=== PATIENT | female | born 1985 | race Caucasian/White ===

== ENCOUNTER 2020-08-30 11:04 | Day surgery (SDC) | payer OTHER, SELFPAY ==
--- NOTE | 2020-08-30 09:07 | PM.IMHP ---
H&P: HPI History of Present Illness Date/Time: 08/30/20 09:07 Chief Complaint: incomplete ab Narrative: Catie Bennett is a 34 year old female admitted with a 1st trimester AB. she had bleeding and indeed he has an open cervix consistent with an incomplete AB this a.m.. She was offered suction dilatation curettage. Risks and benefits were reviewed in full Review of Systems Review of Systems: All systems reviewed & are unremarkable except as noted in HPI and below PMFSH Past Medical History Medical History Anxiety Depression Right arm fracture Surgical History Surgical History H/O LEEP Family History Family History Father Family history of malignant neoplasm Social History Social History Smoking status: Never smoker Meds Home Medications and Allergies Home Medications Medication Instructions Recorded Confirmed Type alprazolam 0.25 mg PO BID PRN 07/29/19 07/29/19 History phenazopyridine [Pyridium] 100 mg PO TID PRN #7 tablet 07/29/19 Rx sertraline 100 mg PO DAILY 07/29/19 07/29/19 History sulfamethoxazole-trimethoprim 1 tablet PO Q12H #14 tablet 07/29/19 Rx [Bactrim DS] Allergies Allergy/AdvReac Type Severity Reaction Status Date / Time No Known Allergies Allergy Verified 07/29/19 14:51 Exam Const: General: no acute distress Eyes: General: appearance normal, both eyes and all related structures Neck: Neck: supple and no JVD Thyroid: thyroid normal Resp: Effort & Inspection: normal respiratory effort Auscultation: clear to auscultation bilaterally Cardio: Rate: regular rate Rhythm: regular rhythm GI: Inspection: non-distended GI Palp: Yes Soft to palpation, No Tenderness to palpation present (GI) and No Guarding due to palpation present (GI) Auscultation: normal bowel sounds : External Female Exam: normal external appearance Speculum Exam - Vagina: normal appearance of the vagina Speculum Exam - Cervix: Cervical os open Bimanual exam- vagina & uterus: enlarged Skin: General skin exam: no rashes or lesions noted Extrem: General: normal to inspection and no edema Psych: Mental Status: mental status grossly normal Affect: normal affect Assessment and Plan Additional Plan impression: 1St trimester incomplete AB Plan: Suction dilatation and curettage
[2020-08-30 09:53] VITALS: BMI 22.0
[2020-08-30 11:43] VITALS: BP 120/78; PULSE 80; RESP 14; TEMP 36.9; O2SAT 100
[2020-08-30] MEDS: ACETAMINOPHEN 500 MG TABLET 1000 MG PO (11:59)
[2020-08-30 12:20] LABS: Hematocrit 29.4 % (37.0-47.0); Hemoglobin 9.9 g/dL (12.0-15.0)
--- NOTE | 2020-08-30 12:21 | WPDHPUPDATE1 ---
History and Physical Update Update Date/Time: 08/30/20 12:21 History and Physical has been reviewed, including an updated exam of the patient. There are NO changes in the patient's condition. Risks, benefits, and alternatives have been discussed and questions answered. Patient agrees to proceed with procedure.
[2020-08-30] MEDS: LACTATED RINGERS 1,000 ML 30 ML IV CONT (12:25)
--- NOTE | 2020-08-30 12:35 | SUR.PREOP ---
pt informed delay in procedure.
--- NOTE | 2020-08-30 12:59 | WPDANESEPPF ---
Anes - Initial Pre Proc Eval Procedure: Operation Date: 08/30/20 14:00 Proposed Procedures p Suction Dilation And Curettage - Altaf Palomares MD Date/Time: 08/30/20 12:59 Surgeon: Altaf Palomares MD Pre Op Diagnosis: Missed AB Patient Data Age: 34 Gender: F Height: 1.73 m Weight: 62.7 kg Last Vital Signs Temp 36.9 C 08/30/20 11:43 Pulse 80 08/30/20 11:43 Resp 14 08/30/20 11:43 BP 120/78 08/30/20 11:43 Pulse Ox 100 08/30/20 11:43 Allergies Allergy/AdvReac Type Severity Reaction Status Date / Time No Known Allergies Allergy Verified 08/30/20 11:52 Home Medications Medication Instructions Recorded Confirmed Type alprazolam 0.25 mg PO BID PRN 07/29/19 08/30/20 History Laboratory Tests 08/30/20 11:41 Hgb 9.9 g/dL L g/dL (12.0-15.0) Hct 29.4 % L % (37.0-47.0) Patient hx anesthesia problems: none Family hx anesthesia problems: none PMFSH Past Medical History Medical History Anxiety Depression Right arm fracture Surgical History Surgical History H/O LEEP Family History Family History Father Family history of malignant neoplasm Social History Social History Smoking status: Never smoker Alcohol intake: former Drinks per week: 3 Living arrangements: with family Spiritual care concerns: No Anes - Eval Final PreProcedure Day of Procedure 08/30/20 12:59 Patient weight: normal Heart: regular rate and rhythm Lungs: clear to auscultation and normal air movement Airway: Mallampati scale class II Neurological: alert and oriented Last oral intake: >/= 8 hours ASA classification: II Emergent: no Anesthetic plan: proceed Anesthesia type and monitoring: general GIVS and standard monitoring Informed Consent: The patient's anesthetic plan and its attendant risks and benefits were discussed with the patient/family/POA. Questions were solicited and answers provided to the satisfaction of the patient/family/POA.
--- NOTE | 2020-08-30 15:01 | PM.PROC ---
Procedure Note - Detailed Date of procedure: 08/30/20 Pre-op diagnosis: Missed AB Surgeon: Altaf Palomares MD Postop diagnosis: 1st trimester incomplete AB Procedure: Suction dilatation curettage Anesthesia: IV sedation and local Findings: Her uterus is sounded to 9cm. Very minimal tissue with some clots. Complications: None Description of procedure: The patient prepped and draped in the normal sterile fashion placed in dorsal lithotomy position. Under excellent IV sedation weighted speculum placed posterior fornix vagina. 2.5cc of 1% xylocaine anesthesia placed at 2, 4, 8, 10:00 a.m. of the cervix. The uterus sounded to 9cm. Serial dilatation with fragmented dilators performed followed by passage of the 9. Suction curette removing very minimal tissue. It should be noted the patient had reported passage of a large clot and tissue just prior to admission. When no further tissue could be removed, the instruments removed. All sponge, needle, instrument counts were correct. There were no immediate complications
[2020-08-30 15:04] VITALS: BP 120/68; PULSE 93; RESP 16; O2SAT 99
[2020-08-30 15:30] VITALS: BP 111/69; PULSE 82; RESP 16
[2020-08-30 16:00] VITALS: BP 115/75; PULSE 80; RESP 16
[2020-08-30 16:08] VITALS: BP 110/78; PULSE 89; RESP 16
== END 2020-08-30 16:15 | disposition home or self-care (01) ==
PROVIDERS: Visit Provider Obstetrics & Gynecology
PROC: (CPT 59820; principal; 2020-08-30 14:00)
DX: O02.1 Missed abortion (principal); F41.8 Other specified anxiety disorders
CPT/HCPCS: 59820; 36415; 85014; 85018; 88305; A9270; J1200; J1940; J2250; J2405; J2704; J3010; J7120

== ENCOUNTER 2021-05-05 11:31 | Emergency (ER) | payer OTHER, SELFPAY ==
[2021-05-05 11:39] VITALS: BP 115/81; PULSE 81; RESP 16; TEMP 36.6; O2SAT 100
--- NOTE | 2021-05-05 12:21 | ED.FEMALEGU ---
HPI - Female Genitourinary General Chief complaint: Urogenital-Female Stated complaint: uti symptoms Time Seen by Provider: 05/05/21 12:02 Source: patient and RN notes reviewed Mode of arrival: ambulatory Limitations: no limitations History of Present Illness HPI Narrative: Patient presents today with a 5-day history of urinary frequency and urgency. States it started after she started progesterone suppositories for infertility. Denies dysuria, hematuria, abdominal pain, back pain, fever. She has tried no [id number] treatment prior to arrival. MD elicited complaint: UTI Related Data Home Medications Medication Instructions Recorded Confirmed alprazolam 0.25 mg PO BID PRN 07/29/19 08/30/20 progesterone micronized mg 05/05/21 Allergies Allergy/AdvReac Type Severity Reaction Status Date / Time No Known Allergies Allergy Verified 08/30/20 11:52 Review of Systems Review of Systems: CONSTITUTIONAL: Denies body aches, fever, chills, or sweats. EYES: Denies visual changes, redness, or discharge. ENT: Denies rhinorrhea, congestion, sore throat, or otalgia. CARDIOVASCULAR: Denies chest pain, palpitations, or edema. RESPIRATORY: Denies cough or dyspnea. GASTROINTESTINAL: Denies abdominal pain, nausea, vomiting, or diarrhea. GENITOURINARY: Denies dysuria or hematuria.+ Urgency, frequency SKIN: Denies rash, itching, or wounds. MUSCULOSKELETAL: Denies back pain, joint pain, or myalgia. NEUROLOGIC: Denies headache, numbness, tingling, or weakness. PSYCH: Denies depression or anxiety. [facility] Past Medical History Medical History Anxiety Depression Right arm fracture Surgical History Surgical History H/O LEEP Family History Family History Father Family history of malignant neoplasm Social History Social History Smoking status: Never smoker Alcohol intake: former Drinks per week: 3 Spiritual care concerns: No Comments At time of signature, I have reviewed and agree with nursing past medical, surgical, social and family history unless otherwise noted. Please see nursing chart for further information. There is no relevant family history pertinent to the presenting complaint Exam Narrative: GENERAL: Well-appearing, well-nourished, and in no acute distress. HEAD: Normocephalic, atraumatic. EYES: EOMI. No redness or drainage. Conjunctivae normal. ENT: Mucous membranes pink and moist. NECK: Normal AROM. CHEST: No respiratory distress. ABDOMEN: nondistended EXTREMITIES: Normal range of motion. No edema. SKIN: Warm, dry, no rash. Capillary refill normal. Normal skin turgor. NEURO: No focal deficits. Alert and oriented x3. Gait steady. PSYCH: Normal affect. No signs of depression or anxiety. Course Vital Signs Vital signs: Vital Signs Temperature 97.9 F 05/05/21 11:39 Pulse Rate 81 05/05/21 11:39 Respiratory Rate 16 05/05/21 11:39 Blood Pressure 115/81 05/05/21 11:39 Pulse Oximetry 100 05/05/21 11:39 Temperature 97.9 F 05/05/21 11:39 Pulse Rate 81 05/05/21 11:39 Respiratory Rate 16 05/05/21 11:39 Blood Pressure 115/81 05/05/21 11:39 Pulse Oximetry 100 05/05/21 11:39 Reviewed. Pt has been instructed to follow up with his PCP regarding his elevated blood pressure today. MDM - Female Genitourinary Differential Diagnosis Differential diagnosis: Likely urinary tract infection, vaginitis and cystitis Lab Data Attestation: I reviewed the patient's lab results. Labs: Urine Glucose Negative Reference Range: Negative Urine Bilirubin Negative Reference Range: Negative Urine Ketone
== END 2021-05-05 12:15 | disposition home or self-care (01) ==
PROVIDERS: Emergency Provider Nurse Practitioner
DX: R35.0 Frequency of micturition (principal); F41.9 Anxiety disorder, unspecified
CPT/HCPCS: 81003; 99213; G0463

== ENCOUNTER 2022-12-21 23:28 | Emergency (ER) | payer SELFPAY ==
[2022-12-22 00:15] VITALS: BP 130/84; PULSE 108; RESP 18; TEMP 36.8; O2SAT 100
--- NOTE | 2022-12-22 02:55 | PC.NURSE ---
patient states wait is too long and left from waiting room
== END 2022-12-22 03:02 | disposition left against medical advice (07) ==
LOC: ANHED 12-22 03:00
DX: O26.893 Other specified pregnancy related conditions, third trimester (principal); R22.42 Localized swelling, mass and lump, left lower limb; Z3A.32 32 weeks gestation of pregnancy
CPT/HCPCS: 99199

== ENCOUNTER 2023-01-06 11:21 | Outpatient (RCR) | payer OTHER, SELFPAY ==
[2023-01-06 12:05] VITALS: BP 116/78; PULSE 120
== END 2023-02-17 12:59 | disposition home or self-care (01) ==
LOC: ANHOBOP 11:21
PROVIDERS: Visit Provider Obstetrics & Gynecology
DX: O36.8130 Decreased fetal movements, third trimester, not applicable or unspecified (principal); Z3A.36 36 weeks gestation of pregnancy
CPT/HCPCS: 59025

== ENCOUNTER 2023-01-19 13:07 | Outpatient (CLI) | payer OTHER, SELFPAY ==
--- NOTE | 2023-01-19 13:40 | PC.NURSE ---
Dr Quiñones notified of patient leaking that was noted after vomiting, ROM plus negative. Patient declining zofran at this time and states that she has some at home. Ok to dc home with labor precautions.
[2023-01-19 13:46] VITALS: BP 98/60; PULSE 95
== END 2023-01-19 13:50 | disposition home or self-care (01) ==
LOC: ANHOBOP 13:57
PROVIDERS: Visit Provider Obstetrics & Gynecology
DX: O42.90 Premature rupture of membranes, unspecified as to length of time between rupture and onset of labor, unspecified weeks of gestation (principal); Z3A.00 Weeks of gestation of pregnancy not specified
CPT/HCPCS: 59025; 84112

== ENCOUNTER 2023-02-04 16:09 | Inpatient (IN) | payer OTHER, SELFPAY ==
[2023-02-04] VITALS (22 sets, daily range): BP systolic 112–145; BP diastolic 65–92; PULSE 87–114; TEMP 36.3–36.8; BMI 28.1
--- NOTE | 2023-02-04 16:37 | PM.IMHP ---
H&P: HPI History of Present Illness Date/Time: 02/04/23 16:37 Chief Complaint: term / mild cholestasis of Narrative: this is a 37-year-old 5 para 1 with an EDC of 02/01/2023 who presents at 40 and 3 7 weeks gestation for induction of labor she had some itching and mild cholestasis of . Her cervix is unfavorable and she has early ultrasound confirming dates. She is negative for group B strep PMFSH Past Medical History Medical History Anxiety Depression Right arm fracture Surgical History Surgical History H/O LEEP Family History Family History Father Family history of malignant neoplasm Social History Social History Smoking status: Never smoker Alcohol intake: former Drinks per week: 3 Substance use: never Living arrangements: with family Spiritual care concerns: No Meds Home Medications and Allergies Home Medications Medication Instructions Recorded Confirmed Type alprazolam 0.25 mg tablet 0.25 mg PO BID PRN Anxiety 07/29/19 08/30/20 History linaclotide 72 mcg capsule 72 mcg PO DAILY PRN Constipation 01/09/23 01/09/23 History (Linzess) prenat.vits,bhaskar,[id number] 1 tablet 01/09/23 History sertraline 50 mg tablet 50 mg PO DAILY 01/09/23 01/09/23 History Allergies Allergy/AdvReac Type Severity Reaction Status Date / Time No Known Allergies Allergy Verified 08/30/20 11:52 Vital Signs Vital Signs - 24 hr 02/04/23 16:29 02/04/23 16:30 Pulse Rate 114 H 107 H Blood Pressure 127/79 131/87 Exam Const: General: cooperative, healthy appearing and comfortable Nutritional Appearance: average body habitus Orientation/consciousness: oriented to person, oriented to place and oriented to time HENMT: Head: normal to inspection Resp: Effort & Inspection: normal respiratory effort Cardio: Rate: regular rate Rhythm: regular rhythm Heart sounds: S1 normal heart sound present and S2 normal heart sound present GI: Inspection: normal to inspection ( gravid soft uterus) : Speculum Exam - Cervix: normal appearance of the cervix ( FHTs reassuring) Assessment and Plan Assessment and plan (1) Term : Code(s): Z34.90 - Encounter for supervision of normal , unspecified, unspecified trimester Status: Acute (2) Cholestasis during : Code(s): O26.619 - Liver and biliary tract disorders in , unspecified trimester; K83.1 - Obstruction of bile duct Status: Acute Plan medical induction of labor. Spontaneous vaginal delivery is expected. She has an epidural candidate
--- NOTE | 2023-02-04 16:42 | P.PNAN_ITS ---
Anes - Eval Pre Procedure Procedure: labor epidural Date/Time: 02/04/23 16:42 Pre Op Diagnosis: Induction of Labor Patient Data Age: 37 Gender: F Height: Weight: Last Vital Signs Pulse 107 H 02/04/23 16:30 BP 131/87 02/04/23 16:30 Allergies Allergy/AdvReac Type Severity Reaction Status Date / Time No Known Allergies Allergy Verified 08/30/20 11:52 Home Medications Medication Instructions Recorded Confirmed Type alprazolam 0.25 mg tablet 0.25 mg PO BID PRN Anxiety 07/29/19 08/30/20 History linaclotide 72 mcg capsule 72 mcg PO DAILY PRN Constipation 01/09/23 01/09/23 History (Linzess) prenat.vits,bhaskar,[id number] 1 tablet 01/09/23 History sertraline 50 mg tablet 50 mg PO DAILY 01/09/23 01/09/23 History Patient hx anesthesia problems: none Family hx anesthesia problems: none Results Review: All pre-operative results and documents have been reviewed as part of the pre- operative evaluation. PMFSH Past Medical History Medical History Anxiety Depression Right arm fracture Surgical History Surgical History H/O LEEP Family History Family History Father Family history of malignant neoplasm Social History Social History Smoking status: Never smoker Alcohol intake: former Drinks per week: 3 Substance use: never Living arrangements: with family Spiritual care concerns: No Exam Day of Procedure 02/04/23 16:42 Patient weight: overweight Heart: regular rate and rhythm Lungs: normal air movement Airway: Mallampati scale class 1 Neurological: alert and oriented
--- NOTE | 2023-02-04 16:42 | LDADM ---
This patient, Catie Bennett, was admitted to Labor/Delivery/Recovery 105 on 02/04/23 at 16:09. Plans for labor, pain management and were discussed with patient. Patient/family oriented to hospital policies and general routines including ID bracelet, bed and alarms, visiting hours, pain management, procedures, bathroom and other care routines, personal items, smoking policy, room service/diet and guest tray routines, security routines, and visiting hours. Patient/Family are encouraged to report perceived risks to care and to ask questions if they do not understand what they are told or what they should do. See OBIX for further documentation.
[2023-02-04 16:47] LABS: Basophils Percent Auto 0.1 % (0.2-1.2); Eosinophils Percent Auto 0.4 % (0-4.4); Hematocrit 33.4 % (37.0-47.0); Hemoglobin 10.9 g/dL (12.0-15.0); Immature Granulocyte Absolute 0.04 K/mm3 (0.00-0.031); Immature Granulocyte Percent A 0.5 % (0-0.5); Lymphocytes Absolute Auto 1.43 K/mm3 (0.9-3.2); Lymphocytes Percent Auto 18.1 % (18.3-44.2); Mean Corpuscular HGB Conc 32.6 g/dl (32-36); Mean Corpuscular Hemoglobin 28.3 pg (26-34); Mean Corpuscular Volume 86.8 fl (80-100); Mean Platelet Volume 11.8 fl (7.4-10.4); Monocytes Absolute Auto 0.6 K/mm3 (0.1-0.6); Monocytes Percent Auto 7.8 % (2.6-8.5); Neutrophils Absolute Auto 5.8 K/mm3 (1.3-6.7); Neutrophils Percent Auto 73.1 % (45.5-73.1); Platelet Count Result 183 k/mm3 (150-375); Red Blood Count 3.85 M/mm3 (4.2-5.4); Red Cell Distribution Width 14.3 % (11.5-14.5); White Blood Count 7.9 K/mm3 (4.5-10.0)
[2023-02-04] MEDS: OXYTOCIN 30 UNITS/NS 500 ML 30 UNITS/500 ML BAG IV CONT (17:16)
[2023-02-04] MEDS: LACTATED RINGERS 1,000 ML 125 ML IV CONT (17:16)
[2023-02-04 18:51] LABS: HIV 1/2 Ab P24 Ag Result Negative (Negative)
[2023-02-04] MEDS: ZOLPIDEM TARTRATE (*CRX) 5 MG TABLET PO ×2 (20:31→23:31)
[2023-02-05] VITALS (95 sets, daily range): BP systolic 95–146; BP diastolic 58–96; PULSE 75–122; RESP 18; TEMP 36.1–37.2; O2SAT 81–100
[2023-02-05] MEDS: LACTATED RINGERS 1,000 ML 125 ML IV CONT ×2 (01:00→07:03)
[2023-02-05] MEDS: fentaNYL CITRATE INJ (*CRX) 100 MCG/2 ML VIAL 50 MCG IV PUSH (06:00)
--- NOTE | 2023-02-05 06:54 | PM.OBPNLAB ---
Pain Control Date/time seen: 02/05/23 06:54 Pain control: tolerating well Pelvic Exam Dilation (cm): 2 Effacement (%): 50 station: -1 Amniotic membrane status: Ruptured
[2023-02-05] MEDS: fentaNYL CITRATE INJ (*CRX) 100 MCG/2 ML VIAL IV PUSH (07:24)
[2023-02-05] MEDS: ONDANSETRON INJ 4 MG/2 ML VIAL IV PUSH (07:25)
[2023-02-05 09:21] LABS: Rapid Plasma Reagin Non-Reactive (NonReactive)
--- NOTE | 2023-02-05 11:42 | PM.OBPNLAB ---
Pain Control Date/time seen: 02/05/23 11:42 Pain control: tolerating well and epidural Pelvic Exam Dilation (cm): 10 Effacement (%): 100 station: +1 Amniotic membrane status: Ruptured
--- NOTE | 2023-02-05 12:13 | PM.OBPRVD ---
OB - Delivery Note Procedure Delivery date: 02/05/23 Events: Elective Induction of Labor Induction method: AROM Delivery augmentation: Pitocin Delivery monitor: External FHT and Internal Uterine Route of delivery: Episiotomy description: None Laceration Description: Perineal - 2nd Degree Delivery repair: vicryl Specimen: No Quantitative Blood Loss (ml): 160 Anesthesia type: Epidural Disposition: Floor Baby Date of : 02/05/23 Time of : 11:57 Weeks of gestation at delivery: 40 Infant gender: Male presentation: vertex position: Other (nuchal arm) Placenta delivery description: Spontaneous Cord Vessel Description: 3 Vessels score one minute: 8 score five minutes: 9
[2023-02-05] MEDS: OXYTOCIN 30 UNITS/NS 500 ML 30 UNITS/500 ML BAG 125 UNITS IV CONT (12:29)
[2023-02-05] MEDS: LORATADINE 10 MG TABLET PO (13:30)
[2023-02-05] MEDS: IBUPROFEN 600 MG TABLET PO ×2 (16:15→22:20)
[2023-02-05] MEDS: DOCUSATE SODIUM 100 MG CAPSULE PO (16:16)
--- NOTE | 2023-02-05 19:27 | P.DS_ITS ---
DS: Admitting Diagnosis Discharge Date 02/06/23 Admitting Diagnosis term / cholestasis of DS: Discharge Diagnosis Discharge Diagnosis (1) Cholestasis during : Code(s): O26.619 - Liver and biliary tract disorders in , unspecified trimester; K83.1 - Obstruction of bile duct Status: Acute (2) Term : Code(s): Z34.90 - Encounter for supervision of normal , unspecified, unspecified trimester Status: Acute DS: Summary Hospital Course Reason for hospitalization: patient was admitted for induction of labor at term Hospital Course: patient underwent successful induction of labor at term. Her hospital course unremarkable. She remained afebrile. She was up, voiding without difficulty, ambulating, eating regular diet, general thought complaints. Time Spent with Patient Time attestation: Total time spent providing and/or coordinating discharge services: Exam Const: General: cooperative, healthy appearing and comfortable Nutritional Appearance: average body habitus Orientation/consciousness: oriented to person, oriented to place and oriented to time HENMT: Head: normal to inspection Resp: Effort & Inspection: normal respiratory effort Cardio: Rate: regular rate Rhythm: regular rhythm Heart sounds: S1 normal heart sound present and S2 normal heart sound present GI: Inspection: normal to inspection ( Fundus firm below umbilicus) Auscultation: normal bowel sounds DS: Data Data Completed and Pending Labs on day of discharge: Labs from last 24 hours 02/04/23 16:25 RPR Non-reactive Discharge Plan Discharge Attending physician on discharge: Altaf Hayden Discharging Clinician: Altaf Hayden Patient Disposition: Home, Self-Care Activity: may shower, no straining and pelvic rest Diet: heart healthy Patient Instructions: Antibiotic Form Stand Alone Forms: General Discharge Information Follow-up/Referrals: Altaf Hayden MD [Physician] - Discharge Medications: No Action #2 Tablet 1 tablet PO DAILY sertraline 50 mg Tablet 50 mg PO DAILY Date of admission: 02/04/23 16:09 Primary Care Provider: PHYSICIAN,[employer] Admitting Provider: Altaf Hayden Attending physician on admission: Altaf Hayden Condition: Stable
[2023-02-05] MEDS: ACETAMINOPHEN 325 MG TABLET 650 MG PO (19:58)
[2023-02-06] MEDS: ACETAMINOPHEN 325 MG TABLET 650 MG PO (02:42)
[2023-02-06 04:00] VITALS: BP 113/77; PULSE 74; RESP 18; TEMP 36.8; O2SAT 100
[2023-02-06 04:33] LABS: Hematocrit 31.3 % (37.0-47.0); Hemoglobin 9.7 g/dL (12.0-15.0)
--- NOTE | 2023-02-06 06:40 | P.PNOB_ITS ---
OB - PN: Subj Subjective Date/time seen: 02/06/23 06:40 Patient comments: no complaints and pain well controlled baby status: doing well OB - PN: Obj Data Labs 02/06/23 03:36 Labs: Laboratory Results - last 24 hr 02/04/23 02/06/23 16:25 03:36 Hgb 9.7 L Hct 31.3 L RPR Non-reactive OB - PN A/P Plan day: 1 Plan: routine care Time Spent With Patient Time: Total time spent is greater than 50% in coordination of care (as documented) at patient's floor/unit and/or counseling patient: Time with patient: less than 15 minutes Exam Const: General: cooperative, healthy appearing and comfortable Nutritional Appearance: average body habitus Orientation/consciousness: oriented to person, oriented to place and oriented to time Resp: Effort & Inspection: normal respiratory effort Cardio: Rate: regular rate Rhythm: regular rhythm Heart sounds: S1 no rmal heart sound present and S2 normal heart sound present GI: Inspection: normal to inspection
[2023-02-06] MEDS: DIBUCAINE 1% OINTMENT 30 GM TUBE 1 APPLIC TOPICAL (07:15)
[2023-02-06] MEDS: BENZOCAINE 20% AER SPR (*SP) 56 GM CAN 1 SPRAY TOPICAL (07:15)
[2023-02-06] MEDS: DOCUSATE SODIUM 100 MG CAPSULE PO (07:15)
[2023-02-06] MEDS: WITCH HAZEL 40 PADS 1 PAD TOPICAL (07:15)
[2023-02-06] MEDS: IBUPROFEN 600 MG TABLET PO ×2 (07:15→14:00)
--- NOTE | 2023-02-06 08:03 | WPDANLDPN2 ---
Anes-Prog Note L&D Date/Time: 02/06/23 08:03 Comfortable throughout: labor and delivery Neuraxial method: epidural Epidural/Spinal procedure site: clean & non-tender Neuro status: Neuro function grossly intact. Cardiovascular status: normal Respiratory status: normal Airway patency: baseline Mental status: baseline Post-Op hydration status: normal Vital Signs: Last Vital Signs Temp 36.8 C 02/06/23 04:00 Pulse 74 02/06/23 04:00 Resp 18 02/06/23 04:00 BP 113/77 02/06/23 04:00 Pulse Ox 100 02/06/23 04:00 O2 Del Method Room Air 02/05/23 16:00 Pain score (VAS): 2 Post-procedural complaints: none Patient feedback: Patient satisfied with anesthetic care.
[2023-02-06 08:15] VITALS: BP 120/81; PULSE 83; RESP 16; TEMP 36.6; O2SAT 100
--- NOTE | 2023-02-06 16:11 | PC.NURSE ---
[id number] Introductions were made, then consulted with patient to assess needs related to . Mother led the conversation with her?plans to feed?her and the?experience so far. Resources provided for inpatient and outpatient services with the feeding sheet, mom/baby guide and name written on the white board. Mother verbalizes she is able to independently latch with appropriate positioning/alignment. She denies any nipple discomfort and is responsively . is currently meeting outcomes for weight, output, jaundice and feeding frequencies of 8-12 times in 24 hours. Mother declines any additional assistance/education at this time. Mother is encouraged to call for assistance if her infant doesn?t latch or there is discomfort with latching. Mother voiced understanding of information shared and the mom reminded of the mom/baby guide for an additional resource. Reported to the primary RN.
[2023-02-07 10:18] VITALS: BP 126/74; PULSE 94; RESP 18; TEMP 36.4; O2SAT 99
== END 2023-02-06 14:25 | disposition home or self-care (01) | DRG 805 ==
LOC: ANHLDR 16:14 → ANHOB2 02-05 16:03
PROVIDERS: Admitting Provider Obstetrics & Gynecology; Visit Provider Obstetrics & Gynecology
DX: O26.62 Liver and biliary tract disorders in childbirth (principal); K83.1 Obstruction of bile duct; Z37.0 Single live birth; Z3A.40 40 weeks gestation of pregnancy; O70.1 Second degree perineal laceration during delivery
CPT/HCPCS: 36415; 85014; 85018; 85025; 86592; 86703; 86850; 86900; 86901; A9270; G0432; J2405; J2590; J2795; J3010; J7120

== ENCOUNTER → 2023-03-19 14:27 | Outpatient (CLI) | payer OTHER, SELFPAY ==
--- NOTE | ~2023-03-19 | MMUS_ITS ---
EXAMINATION: MM diagnostic richard BI w petar, US breast BI complete HISTORY: Blister on left nipple for 3 weeks. Mastodynia. TECHNIQUE: ML, MLO and CC 3-D tomosynthesis images of both breasts were performed and synthetic 2-D i mages were generated. CAD analysis was submitted and interpreted. High resolution complete bilateral breast ultrasound examination including all 4 quadrants and subareolar areas was performed. COMPARISON: None ; baseline examination BREAST PARENCHYMAL COMPOSITION: The breasts are extremely dense, which lowers the sensitivity of mamm ography. FINDINGS: MAMMOGRAPHIC FINDINGS: No suspicious mass, architectural distortion, malignant calcification, skin thickening or retraction is evident. The extremely dense tissue may obscure masses. ULTRASOUND: There is dense fibroglandular stroma throughout both breasts. No suspicious mass or shadowing, cyst o r other significant sonographic abnormality is detected. IMPRESSION: 1. Negative bilateral mammogram and breast ultrasound examination; no evidence of malignancy 2. Routine annual mammographic screening beginning at age 40 is recommended BI-RADS Category 1: Negative Reviewed, dictated and finalized at location A. IMPRESSION: 1. Negative bilateral mammogram and breast ultrasound examination; no evidence of malignancy 2. Routine annual mammographic screening beginning at age 40 is recommended BI-RADS Category 1: Negative
== END ==
PROVIDERS: PCP Surgery; Visit Provider Physician Assistant Surgical
DX: N64.4 Mastodynia (principal)
CPT/HCPCS: 76641; 77062; 77066; G0279

== ENCOUNTER 2025-03-14 10:48 | Outpatient (CLI) | payer OTHER, SELFPAY ==
--- OUTSIDE RECORDS SUMMARY | 2025-03-14 11:20 | XMS_ITS | Clinical Summary ---
Author Organization [address] Address [address] [place] [id number] Care Team Providers Care Business Solutions Architect Name Role Phone Unknown, Notinfile Primary Care Provider Unavail able Allergies No known active allergies Medications acetaminophen (TYLENOL) 500 mg tablet Take 2 tablets (1,000 mg total) by mouth every 4 (four) hours as needed 1 Active ALPRAZolam (XANAX) 0.25 mg tablet Take 1 tablet (0.25 mg total) by mouth 3 (three) times a day as needed Active amoxicillin (AMOXIL) 875 mg tablet 1 tablet twice a day for by mouth - 2 Active betamethasone valerate (VALISONE) 0.1 % cream APPLY TOPICALLY TO THE AFFECTED AREA THREE TIMES DAILY NEEDED 3 Active cephalexin (KEFLEX) 500 mg capsule TAKE 1 CAPSULE BY MOUTH TWICE DAILY FOR 7 DAYS 3 Active clonazePAM (KlonoPIN) 1 mg tablet Take 1 tablet (1 mg total) by mouth daily 1 Active clotrimazole 1 % cream APPLY TOPICALLY TO THE AFFECTED AREA THREE TIMES DAILY NEEDED 3 Active docusate sodium (COLACE) 100 mg capsule Take 1 capsule (100 mg total) by mouth 2 (two) times a day 1 Active methylPREDNISolo ne (MEDROL DOSEPACK) 4 mg Dosepack FOLLOW PACKAGE DIRECTIONS 3 Active mupirocin (BACTROBAN) 2 % ointment APPLY TOPICALLY THREE TIMES DAILY FOR LEFT BREAST SKIN INFECTION. REMOVE OINTMENT PRIOR TO BREAST FEEDING. 3 Active nitrofurantoin monohydrate (MACROBID) 100 mg capsule Take 1 capsule (100 mg total) by mouth 2 (two) times a day 3 Active oxyCODONE (ROXICODONE) 5 mg immediate release tablet Take 1 tablet (5 mg total) by mouth every 6 (six) hours as needed 1 Active polyethylene glycol (MIRALAX) 17 gram/dose bulk powder Take 17 g by mouth daily as needed 1 Active sertraline (ZOLOFT) 100 mg tablet Take 1 tablet (100 mg total) by mouth daily Active sertraline (ZOLOFT) 50 mg tablet Take 1 tablet (50 mg total) by mouth daily 3 Active dextroamphetamin e-amphetamine (ADDERALL) 10 mg tablet TAKE 1 TABLET BY MOUTH IN THE MORNING AND 1 TABLET MIDDAY 4 Active escitalopram (LEXAPRO) 10 mg tablet Take 1 tablet (10 mg total) by mouth daily 4 Active eszopiclone (LUNESTA) 2 mg tablet 5 Active traZODone (DESYREL) 50 mg tablet Take 3 tablets (150 mg total) by mouth nightly 5 Active Active Problems Problem Noted Date Diagnosed Date Endometriosis 12/16/2020 Social History Tobacco Use Types Packs/Day Years Used Date Smoking Tobacco: Never Assessed Comments Unknown Sex and Gender Information Value Date Recorded Sex Assigned at Not on file Legal Sex Female 5:22 PM CDT Gender Identity Not on file Sexual Orientation Not on file Obstetrics History Last Filed Vital Signs Vital Sign Reading Time Taken Comments Blood Pressure 107/66 07/13/2024 5:06 PM SUCTION DRUM DRIER OPERATOR Pulse 121 07/13/2024 5:06 PM SUCTION DRUM DRIER OPERATOR Temperature 37.9 C (100.2 F) 07/13/2024 5:06 PM SUCTION DRUM DRIER OPERATOR Respiratory Rate 28 07/13/2024 5:06 PM SUCTION DRUM DRIER OPERATOR Oxygen Saturation 96% 07/13/2024 5:06 PM SUCTION DRUM DRIER OPERATOR Inhaled Oxygen Concentration - - Weight 75.7 kg (166 lb 14.4 oz) 07/14/2023 2:35 PM SUCTION DRUM DRIER OPERATOR Height 172.7 cm (5' 7.99) 07/14/2023 2:35 PM CS T Body Mass Index 25.38 07/14/2023 2:35 PM SUCTION DRUM DRIER OPERATOR Plan of Treatment Health Maintenance Due Date Last Done Comments Cervical Cancer Screening 1985 Depression Screening 1985 Hepatitis C Screening 1985 DTaP/Tdap/Td Vaccine (1 - Tdap) 1996 Varicella Vaccines (1 of 2 - 13+ 2-dose series) 1998 Hepatitis B Screening 10/15/2003 Regular Well Visit/Exam 18-64 10/15/2003 HPV Vaccines (1 - 3-dose SCDM series) 2012 Covid-19 Vaccine ( season) 2024 05/12/2021, 09/26/2020, 07/28/2020, Additional history exists Influenza Vaccine (#1) 2025 05/12/2021 Pneumococcal vaccine <65 Aged Out No longer eligible based on patient's age to complete this topic Insurance [facility] PPO Care Teams Business Solutions Architect Relationship Specialty Start Date End Date Unknown, Notinfile PCP - General 03/27/23
--- OUTSIDE RECORDS SUMMARY | 2025-03-14 11:20 | XMS_ITS | Clinical Summary ---
Author Organization [facility] Address [address] [place] [address] Phone Care Team Providers Care Hydrologist Name Role Phone Unavailable Primary Care Provider Unavailabl e Allergies No known active allergies Medications sertraline (ZOLOFT) 100 mg tablet Take 100 mg by mouth daily. Active ALPRAZolam (XANAX) 0.25 mg tablet Take 0.25 mg by mouth 3 times daily as needed for Anxiety. Active acetaminophen (TYLENOL) 500 mg tablet Take 2 Tablets (1,000 mg) by mouth every 4 hours as needed for Pain or Pain, Mild. 12/18/19 21 Active docusate sodium (COLACE) 100 mg capsule Take 1 Capsule (100 mg) by mouth 2 times daily. 12/18/19 21 Active polyethylene glycol 3350 (MIRALAX) 17 gram/dose Powder Take 1 Scoop (17 Grams) by mouth 1 time daily as needed for Constipation. Dissolve in 8 ounces of fluid and drink entire liquid 527 Gram 12/18/19 21 Active oxyCODONE (ROXICODONE) 5 mg tabletIndications :S/P laparoscopic-assi sted sigmoidectomy Take 1 Tablet (5 mg) by mouth every 6 hours as needed for Pain, Moderate or Pain, Severe. Max Daily Amount: 20 mg 42 Tablet 12/18/19 21 Active clonazePAM (KlonoPIN) 1 mg tablet Take 1 Tablet (1 mg) by mouth daily at bedtime. 30 Tablet 1 4:12 PM CDT 01/01/20 21 Active progesterone 300 mg vaginal suppository compound Insert 1 suppository vaginally two times daily starting peak +3 through peak +12. 20 Suppository 5 09/08/202 1 5:02 PM CDT 02/09/20 21 Active Active Problems Problem Noted Date Diagnosed Date Endometriosis 12/16/2020 Immunizations Immunization Administration Dates Next Due (SPIKEVAX) (12 YRS UP PRIMAR Y SERIES) COVID-19 VACCINE - MRNA-1273(PF) 100 MCG/0.5 ML IM SUSP 07/28/2020,07/07/2019 Family History Medical History Relation Name Comments Colon Cancer Maternal Grandmother Relation Name Status Comments Maternal Grandmother Social History Tobacco Use Types Packs/Day Years Used Date Smoking Tobacco: Never Smokeless Tobacco: Never Alcohol Use Standard Drinks/Week Comments Yes 0 (1 standard drink = 0.6 oz pur e alcohol) social Comments No Sex and Gender Information Value Date Recorded Sex Assigned at Not on file Legal Sex Female 11:54 AM CDT Gender Identity Not on file Sexual Orientation Not on file Last Filed Vital Signs Vital Sign Reading Time Taken Comments Blood Pressure 116/79 12/31/2020 10:58 AM CDT Pulse 98 12/31/2020 10:41 AM CDT Temperature 36.4 C (97.5 F) 12/31/2020 10:41 AM CDT Respiratory Rate 22 12/31/2020 10:4 1 AM CDT Oxygen Saturation 99% 12/31/2020 10: 41 AM CDT Inhaled Oxygen Concentration - - Weight 61.6 kg (135 lb 14.4 oz) 12/30/2020 2:53 AM CDT Height 172.7 cm (5' 8) 12/28/2020 10:5 1 AM CDT Body Mass Index 20.66 12/28/2020 10:51 AM CDT Plan of Treatment Health Maintenance Due Date Last Done Comments DTAP/TDAP/TD VACCINES (1 - Tdap) 2004 HEPATITIS B VACCINES (1 of 3 - 19+ 3-dose series) 2004 HPV/Cotest (21-29) 2006 HPV VACCINES (1 - 3-dose SCDM series) 2012 CERVICAL CANCER SCREENING 10/15/2015 HPV/Cotest (30-65) 10/15/2015 PAP SMEAR 10/15/2015 INFLUENZA VACCINE (#1) 2025 COVID-19 Vaccine (3 - 2024- season) 2025, 07/07/2019 Medical Devices Implanted Type Area Supervisor Coin Machine Device Identifier Shelf Expiration Date Model / Serial / Lot Hemostatic Surgicel 1x2in 1960 - [id number] Implanted:Qty : 2 on 12/28/2020 by Kamran Monae DMD at [facility] Hemostatic N/A: Face J[employer]J- [employer] 01/03/20231960 / / [id number] Screw Crssdrv 2.0x7mm 70-000-20-91 - [id number] Implanted:Qty : 4 on 12/28/2020 by Kamran Monae DMD at [facility] Screw N/A: Face HOA BUSTAMANTE FARAZ 772 / / STERILIZE [id number] LOAD 17 Description:BILATERAL Screw Crssdrv 2.0x5mm 45-328-76-91 - [id number] Implanted:Qty : 36 on 12/28/2020 by Kamran Monae DMD at [facility] Screw N/A: Face HOA ROBBY RUTH -772 / / STERILIZE R26-11-30 LOAD 17 Description:BILATERAL Sealant Fibrin Vistaseal 10ml Vst10 - [id number] Implanted:Qty : 1 on 12/13/2020 by Mike Hankins MD at [facility] Sealant Pelvis J&J- [employer] 01/22/2022 VST10 / [id number] / [id number] Bent Amish T Plate Right Implanted:Qty : 1 on 12/28/2020 by Kamran Monae DMD at [facility] N/A: Maxilla JOOS ROBBY LP 50-723-26 - / / STERILIZE D 12-25-20 LOAD 17 Bent Amish T Plate Left Implanted:Qty : 1 on 12/28/2020 by Kamran Monae DMD at [facility] Left: Maxilla JOOS ROBBY LP 50-724-26 - / / STERILIZE D 12-25-20 LOAD 17 Bent 4 Hole L Plate Medium Right Implanted:Qty : 1 on 12/28/2020 by Kamran Monae DMD at [facility] Right: Face HOA BUSTAMANTE LP 50-723-24 -09 / STERILIZE D DECEMBER 25, 2020 LOAD 17 / Bent 4-Hole L Plate Medium Left Implanted:Qty : 1 on 12/28/2020 by Kamran Monae DMD at [facility] Left: Face HOA BUSTAMANTE LP 50-724-24 - / STERILIZE D DECEMBER 25, 2020 LOAD 17 / Description:All KLS facial c omponents are processed on requisition, [id number]. 4-Hole Z Plate Left Implanted:Qty : 1 on 12/28/2020 by Kamran Monae DMD at [facility] Left: Mandible HOA BUSTAMANTE LP 50-742-04 - / / STERLIZED 12-25-20 LOAD 17 4- Hole Z Plate Right Implanted:Qty : 1 on 12/28/2020 by Kamran Monae DMD at [facility] Right: Mandible HOA BUSTAMANTE LP 50-743- - / / STERLIZED 12-25-20 LOAD 17 4 Hole L Plate Large Right Implanted:Qty : 1 on 12/28/2020 by Kamran Monae DMD at [facility] Right: Mandible HOA BUSTAMANTE LP 25-740-24 - / / STERLIZED 12-25-20 LOAD 17 4 Hole L Plate Medium Left Implanted:Qty : 1 on 12/28/2020 by Kamran Monae DMD at [facility] Left: Mandible HOA BUSTAMANTE LP 25-741-14 - / / STERLIZED 12-25-20 LOAD 17 Explanted Type Area Supervisor Coin Machine Device Identifier Shelf Expiration Date Model / Serial / Lot Screw Mmf [id number] - [id number] Explanted:Qty: 9 on 12/28/2020 at [facility] Screw N/A: Face HOA BUSTAMANTE LP 25-092-44-9 1 / / [id number] 12-16-20 LOAD 17 Insurance [facility] OPT[employer] PPO [id number] Member Subscriber Plan / Payer ( fective 2020-Present) Name:Catie Bennett Relation to Subscriber:Self Name:Catie Bennett Subscriber ID:Not on file Payer ID:Not on file Group ID:[id number] Type:RX Commercial Address: [address] [place] Advance Directives For more information, please contact: [phone] * Full Code (Latest Code Status on File) Date Activated Date Inactivated Comments 12/28/2020 10:45 AM 12/31/2020 6:59 PM * Full Code Date Activated Date Inactivated Comments 12/14/2020 4:41 PM 12/17/2020 3:30 PM * Full Code Date Activated Date Inactivated Comments 12/13/2020 6:28 AM 12/13/2020 4:59 PM * Full Code Date Activated Date Inactivated Comments 12/12/2020 6:48 AM 12/12/2020 10:51 AM
[2025-03-14 11:23] LABS: Hematocrit 39.6 % (37.0-47.0); Hemoglobin 13.0 g/dL (12.0-15.0); Immature Granulocyte Percent A 0.2 % (0-0.5); Lymphocytes Absolute Auto 1.61 K/mm3 (0.9-3.2); Mean Corpuscular HGB Conc 32.8 g/dl (32-36); Mean Corpuscular Hemoglobin 30.1 pg (26-34); Mean Corpuscular Volume 91.7 fl (80-100); Nucleated Red Blood Cells Absolute Auto 0.000 K/mm3 (0.0-0.012); Nucleated Red Blood Cells Perc 0.0 % (0.0-0.2); Platelet Count Result 245 k/mm3 (150-375); Red Blood Count 4.32 M/mm3 (4.2-5.4); White Blood Count 4.9 K/mm3 (4.5-10.0)
== END 2025-03-14 10:49 | disposition home or self-care (01) ==
PROVIDERS: Visit Provider Obstetrics & Gynecology
DX: N80.9 Endometriosis, unspecified (principal); Z01.818 Encounter for other preprocedural examination
CPT/HCPCS: 36415; 85025; 86850; 86900; 86901

== ENCOUNTER 2025-03-18 02:15 | Day surgery (SDC) | payer OTHER, SELFPAY ==
--- NOTE | 2025-03-09 14:32 | SUR.PREOP ---
Report to the Outpatient Waiting Room, entrance under the green pavilion located off [facility], at time _0600_ on date _03/18/25_. Planned Procedure Time: _0730_.? Time changes happen often and if your time is changed the preop area will call you the afternoon before. - You and your visitor will be asked to self-screen and do not enter if you have any COVID symptoms. Please call surgeon if you need to reschedule. - A mask is optional within the hospital at this time. Patients may have clear liquids (water, carbonated beverages, clear teas, apple juice) until 3 hours (0430) prior to surgery with a maximum of 20 ounces. - No food from midnight until time of surgery and no smoking, or chewing tobacco (or any form of nicotine). No chewing gum, candy or mints. Take only the following medications with a SIP of water on the morning of surgery: _SERTRALINE_ DO NOT STOP ANY OF YOUR OTHER PRESCRIPTION MEDICATIONS PRIOR TO SURGERY EXCEPT THE FOLLOWING Hold all vitamins and supplements for 3 days per anesthesiologist. Medications to discontinue per physician _NA_ Please no make-up, nail romanian, hairspray, perfume, deodorant, or body powder the day of surgery.? No jewelry (including any body piercings) or valuables the day of surgery, leave them at home.? Please take a shower or bath the night before, or the morning of, surgery with an antibacterial soap.? Wear comfortable, loose fitting clothing.? - Jewelry must be removed prior to entering the operating room.? Rings and piercings that are not removed may be cut off. - The hospital will not accept responsibility for valuables.? - Please leave all valuables, including medications, at home the day of surgery. If you are going home after surgery, a licensed electric mule driver must drive you home.? - NO public transportation without another adult if you receive anesthesia. - We recommend that an adult stay with you for 24 hours following discharge. - We also recommend that you do not drive, make important decision, drink alcoholic beverages, or take any drugs that were not prescribed by your health care provider for at least 24 hours after your discharge time. Follow any additional instructions given to you from your surgeon. Telephone instructions given to _ANGELA_and asked if any additional questions and then verbalized understanding. Patient advised to call surgeon office or pre surgery nurse liaison [phone] if any additional questions.
[2025-03-09 14:38] VITALS: BMI 19.8
--- NOTE | 2025-03-15 03:22 | PM.IMHP ---
H&P: HPI History of Present Illness Date/Time: 03/15/25 03:22 Chief Complaint: Chronic pelvic pain dyspareunia heavy bleeding with enlarged labia Narrative: This is a 39-year-old 2 para 2 admitted for robotic total vaginectomy bilateral salpingectomy secondary to uterine prolapse pelvic pain dyspareunia she also has large labia she has burning with discomfort and pulling and enlarged labia urine noted. She understands the labioplasty is not a cosmetic procedure and done for the discomfort that she has. Risks and benefits of this procedure reviewed including not exclusive of , aspiration pneumonia, bleeding, transfusion, perforation injury to bowel, bladder, ureters, or other internal organs with need for open laparotomy she received the [facility] handout entitled hysterectomy as well as the de Partha handout. She had all questions answered. She asked to proceed. Review of Systems Review of Systems: CONSTITUTIONAL: Denies body aches, fever, chills, or sweats. EYES: Denies visual changes, redness, or discharge. ENT: Denies rhinorrhea, congestion, sore throat, or otalgia. CARDIOVASCULAR: Denies chest pain, palpitations, or edema. RESPIRATORY: Denies cough or dyspnea. GASTROINTESTINAL: Denies abdominal pain, nausea, vomiting, or diarrhea. GENITOURINARY: Denies dysuria or hematuria.+ Urgency, frequency SKIN: Denies rash, itching, or wounds. MUSCULOSKELETAL: Denies back pain, joint pain, or myalgia. NEUROLOGIC: Denies headache, numbness, tingling, or weakness. PSYCH: Denies depression or anxiety. [facility] Past Medical History Medical History Fracture of fifth metatarsal bone of right foot Anxiety Depression Right arm fracture Surgical History Surgical History H/O LEEP Family History Family History Father Family history of malignant neoplasm Unknown Depression Social History Social History Social History: caffeine use Smoking status: Never smoker Second hand tobacco smoke exposure: No Alcohol intake: current Drinks per week: 3 Alcohol use details: SOCIALLY Substance use: never Lack of Transportation: No Lack of Food: Never True Current Housing: I Have Housing Concerned About Future Housing: No Difficulty Paying Gas/Electric Bills: No Difficulty Paying for Meds: No Currently Unemployed: No Education: Bachelor's Degree Difficulty w/ Childcare or Family Care: No Living arrangements: with family Additional living arrangements comments: AND CHILDREN Occupation/Education: occupation 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 Gender identity (if verbalized by the patient): Female Spiritual care concerns: No Meds Home Medications and Allergies Home Medications ?Medication ?Instructions ?Recorded ?Confirmed ?Type sertraline 50 mg tablet 50 mg PO DAILY 01/09/23 03/09/25 History alprazolam 0.25 mg tablet 0.25 mg PO DAILY PRN anxiety 03/09/25 03/09/25 History dextroamphetamine-amphetamine 10 10 mg PO DAILY PRN ADHD 03/09/25 03/09/25 History mg tablet eszopiclone 2 mg tablet 2 mg PO DAILY PRN insomnia 03/09/25 03/09/25 History trazodone 50 mg tablet 50 mg PO DAILY PRN insomnia 03/09/25 03/09/25 History Allergies Allergy/AdvReac Type Severity Reaction Status Date / Time No Known Allergies Allergy Verified 03/09/25 14:19 Exam Const: General: cooperative, healthy appearing and comfortable Nutritional Appearance: average body habitus Orientation/consciousness: oriented to person, oriented to place and oriented to time HENMT: Head: normal to inspection Resp: Effort & Inspection: normal respiratory effort Cardio: Rate: regular rate Rhythm: regular rhythm Heart sounds: S1 normal heart sound present and S2 normal heart sound present GI: Inspection: normal to inspection : External Female Exam: normal external appearance (Bilaterally enlarged labia) Speculum Exam - Vagina: normal appearance of the vagina Speculum Exam - Cervix: normal appearance of the cervix (Second-degree prolapse noted) Bimanual exam- vagina & uterus: enlarged and Uterine tenderness Bimanual Exam- Adnexa, other: normal adnexae Assessment and Plan Assessment and plan (1) Uterine prolapse: Code(s): N81.4 - Uterovaginal prolapse, unspecified Status: Acute (2) Enlarged uterus: Code(s): N85.2 - Hypertrophy of uterus Status: Acute (3) Labia enlarged: Code(s): N90.60 - Unspecified hypertrophy of vulva Status: Acute Plan Proceed with robotic total vaginal hysterectomy bilateral salpingectomy labioplasty bilaterally
[2025-03-18] VITALS (9 sets, daily range): BP systolic 101–125; BP diastolic 63–83; PULSE 70–89; RESP 12–20; TEMP 36.3–37.2; O2SAT 98–100
--- OUTSIDE RECORDS SUMMARY | 2025-03-18 02:18 | XMS_ITS | Clinical Summary ---
Author Organization [facility] Address [address] [place] [id number] Care Team Providers Care Receipt And Report Clerk Name Role Phone Unavailable Primary Care Provider Unavailabl e Social History Tobacco Use Types Packs/Day Years Used Date Smoking Tobacco: Never Assessed Comments Unknown Sex and Gender Information Value Date Recorded Sex Assigned at Not on file Legal Sex Female 7:27 PM CDT Gender Identity Not on file Sexual Orientation Not on file Plan of Treatment Health Maintenance Due Date Last Done Comments Cervical Cancer Screening Pa p Smear (Age 30 to 64) Every 3 Years 1985 Annual Physical 1988 Hepatitis C 10/15/2003 DTaP, Tdap and Td Vaccines ( 1 - Tdap) 2004 Hepatitis B Vaccines (1 of 3 - 19+ 3-dose series) 2004 HPV Vaccines (1 - 3-dose SCD M series) 2012 Cervical Cancer Screening Pa p with HPV Testing (Age 30 to 64) Every 5 Years 10/15/2015 Cervical Cancer Screening with HPV 10/15/2015 COVID-19 Vaccine (2023-2 5 season) 2025 Meningococcal B Vaccine Aged Out No l onger eligible based on patient's age to complete this topic Meningococcal Vaccine Aged Out No mike luca eligible based on patient's age to complete this topic Pneumococcal Vaccine: Pediat rics (0 to 5 Years) and At-Risk Patients (6 to 49 Years) Aged Out No longer eligible b ased on patient's age to complete this topic RSV Immunizations Under 20 Months Aged Out No longer eligible based on patient's age to complete this topic
--- OUTSIDE RECORDS SUMMARY | 2025-03-18 02:18 | XMS_ITS | Clinical Summary ---
Author Organization [address] Address [address] [place] [phone] Care Team Providers Care Insurance Sales Assistant Name Role Phone Unknown, Notinfile Primary Care [...] Comments Blood Pressure 107/66 07/13/2024 5:06 PM APPLICATION PACKAGER Pulse 121 07/13/2024 5:06 PM APPLICATION PACKAGER Temperature 37.9 C (100.2 F) 07/13/2024 5:06 PM APPLICATION PACKAGER Respiratory Rate 28 07/13/2024 5:06 PM APPLICATION PACKAGER Oxygen Saturation 96% 07/13/2024 5:06 PM APPLICATION PACKAGER Inhaled Oxygen Concentration - - Weight 75.7 kg (166 lb 14.4 oz) 07/14/2023 2:35 PM APPLICATION PACKAGER Height 172.7 cm (5' 7.99) 07/14/2023 2:35 PM CS T Body Mass Index 25.38 07/14/2023 2:35 PM APPLICATION PACKAGER Plan of Treatment Health Maintenance Due Date [...] patient's age to complete this topic Insurance [facility] PPO Care Teams Insurance Sales Assistant Relationship Specialty Start Date End Date Unknown, Notinfile PCP - General 03/27/23
--- OUTSIDE RECORDS SUMMARY | 2025-03-18 02:18 | XMS_ITS | Clinical Summary ---
Author Organization [facility] Address [address] [place] [address] Phone Care Team Providers Care Senior Manager Mmcoe Name Role Phone Unavailable Primary Care Provider [...] 2025, 07/07/2019 Medical Devices Implanted Type Area Railroad Brakeman Device Identifier Shelf Expiration Date Model / Serial / Lot Hemostatic Surgicel 1x2in 1960 - [id number] Implanted:Qty : 2 on 12/28/2020 by Kamran Monae DMD at [facility] Hemostatic N/A: Face J[employer]J- [employer] 01/03/20231960 / / [id number] Screw Crssdrv 2.0x7mm 16-389-21-91 - [id number] Implanted:Qty : 4 on 12/28/2020 by Kamran Monae DMD at [facility] Screw N/A: Face HOA BUSTAMANTE FARAZ 772 / / STERILIZE [id number] LOAD 17 Description:BILATERAL Screw Crssdrv 2.0x5mm 13-650-83-91 - [id number] Implanted:Qty : 36 on 12/28/2020 by Kamran Monae DMD at [facility] Screw N/A: Face HOA ROBBY RUTH -772 / / STERILIZE Z32-31-19 LOAD 17 Description:BILATERAL Sealant Fibrin Vistaseal 10ml Vst10 - [id number] Implanted:Qty : 1 on 12/13/2020 by Mkie Hankins MD at [facility] Sealant Pelvis J&J- [employer] 01/22/2022 VST10 / [id number] / [id number] Bent Amish T Plate Right Implanted:Qty : 1 on 12/28/2020 by Kamran Monae DMD at [facility] N/A: Maxilla JOOS ROBBY LP 50-723-26 - / / STERILIZE D 12-25-20 LOAD 17 Bent Amish T Plate Left Implanted:Qty : 1 on 12/28/2020 by Kamran Monae DMD at [facility] Left: Maxilla JOOS ROBBY LP 50-724-26 - / / STERILIZE D 12-25-20 LOAD 17 Bent 4 Hole L Plate Medium Right Implanted:Qty : 1 on 12/28/2020 by Kamran Monae DMD at [facility] Right: Face HOA BUSTAMANTE LP 50-723-24 -09 / STERILIZE D DECEMBER 25, 2020 LOAD 17 / Bent 4-Hole L Plate Medium Left Implanted:Qty : 1 on 12/28/2020 by Kamran Monae DMD at [facility] Left: Face HOA BUSTAMANTE LP 50-724-24 - / STERILIZE D DECEMBER 25, 2020 LOAD 17 / Description:All KLS facial c omponents are processed on requisition, [id number]. 4-Hole Z Plate Left Implanted:Qty : 1 on 12/28/2020 by Kamran Monae DMD at [facility] Left: Mandible HOA BUSTAMANTE LP 50-742-04 - / / STERLIZED 12-25-20 LOAD 17 4- Hole Z Plate Right Implanted:Qty : 1 on 12/28/2020 by Kamran Monae DMD at [facility] Right: Mandible HOA BUSTAMANTE LP 50-743- - / / STERLIZED 12-25-20 LOAD 17 4 Hole L Plate Large Right Implanted:Qty : 1 on 12/28/2020 by Kamran Monae DMD at [facility] Right: Mandible HOA BUSTAMANTE LP 25-740-24 - / / STERLIZED 12-25-20 LOAD 17 4 Hole L Plate Medium Left Implanted:Qty : 1 on 12/28/2020 by Kamran Monae DMD at [facility] Left: Mandible HOA BUSTAMANTE LP 25-741-14 - / / STERLIZED 12-25-20 LOAD 17 Explanted Type Area Railroad Brakeman Device Identifier Shelf Expiration Date Model / Serial / Lot Screw Mmf [id number] - [id number] Explanted:Qty: 9 on 12/28/2020 at [facility] Screw N/A: Face HOA BUSTAMANTE LP 25-092-44-9 1 / / [id number] 12-16-20 LOAD 17 Insurance [facility] [employer] PPO [id number] Member Subscriber Plan / Payer ( fective 2020-Present) Name:Catie Bennett Relation to Subscriber:Self Name:Catie Bennett Subscriber ID:Not on file Payer ID:Not on file Group ID:[id number] Type:RX Commercial Address: [address] [place] Advance Directives For more information, please contact: [phone] * Full Code (Latest Code Status on [...]
--- NOTE | 2025-03-18 06:26 | WPDHPUPDATE1 ---
History and Physical Update Update Date/Time: 03/18/25 06:26 History and Physical has been reviewed, including an updated exam of the patient. There are NO changes in the patient's condition. Risks, benefits, and alternatives have been discussed and questions answered. Patient agrees to proceed with procedure.
[2025-03-18] MEDS: LACTATED RINGERS 1,000 ML 30 ML IV CONT ×2 (07:00→08:48)
[2025-03-18] MEDS: KETOROLAC 15 MG/ML VIAL (*BKC) IV PUSH (07:08)
[2025-03-18] MEDS: ACETAMINOPHEN 500 MG TABLET 1000 MG PO ×3 (07:08→19:40)
[2025-03-18 07:16] LABS: BEDSIDEPREGUCG Negative (Negative)
--- NOTE | 2025-03-18 07:21 | P.PNAN_ITS ---
Anes - Initial Pre Proc Eval Procedure: Operation Date: 03/18/25 07:30 Proposed Procedures p Robotic Total Vaginal Hysterectomy with Bilateral Salpingectomy, - Altaf Moreau MD s Bilateral Labiaplasty - Altaf Moreau MD Date/Time: 03/18/25 07:21 Surgeon: Altaf Moreau MD Pre Op Diagnosis: endometriosis, pelvic pain, dysmenorrhea, Patient Data Age: 39 Gender: F Height: 1.73 m Weight: 60.3 kg Last Vital Signs Temp 37.2 C 03/18/25 07:11 Pulse 80 03/18/25 07:11 Resp 16 03/18/25 07:11 BP 106/73 03/18/25 07:11 Pulse Ox 100 03/18/25 07:11 O2 Del Method Room Air 03/18/25 07:11 Allergies Allergy/AdvReac Type Severity Reaction Status Date / Time No Known Allergies Allergy Verified 03/18/25 07:08 Home Medications ?Medication ?Instructions ?Recorded ?Confirmed ?Type sertraline 50 mg tablet 50 mg PO DAILY 01/09/23/09/28 History alprazolam 0.25 mg tablet 0.25 mg PO DAILY PRN anxiety 03/09/25 03/09/25 History dextroamphetamine-amphetamine 10 10 mg PO DAILY PRN AD HD 03/09/25 03/09/25 History mg tablet eszopiclone 2 mg tablet 2 mg PO DAILY PRN insomnia 0 03/09/25 03/09/25 History trazodone 50 mg tablet 50 mg PO DAILY PRN insomnia 03/09/25 03/09/25 History hydrocodone 5 mg-acetaminophen 325 1 tablet PO Q4H PRN pain #30 tabs 03/18/25 Rx mg tablet Laboratory Tests 03/18/25 07:11 POC Urine HCG, Qual Negative (Negative) HCG: negative Patient hx anesthesia problems: post op nausea/vomiting Family hx anesthesia problems: none Results Review: All pre-operative results and documents have been reviewed as part of the pre- operative evaluation. [facility] Past Medical History Medical History PONV (postoperative nausea and vomiting) Panic attack Fracture of fifth metatarsal bone of right foot Anxiety Depression Right arm fracture Surgical History Surgical History H/O LEEP Family History Family History Father Family history of malignant neoplasm Unknown Depression Social History Social History Social History: caffeine use Smoking status: Never smoker Second hand tobacco smoke exposure: No Alcohol intake: current Drinks per week: 3 Alcohol use details: SOCIALLY Substance use: never Lack of Transportation: No Lack of Food: Never True Current Housing: I Have Housing Concerned About Future Housing: No Difficulty Paying Gas/Electric Bills: No Difficulty Paying for Meds: No Currently Unemployed: No Education: Bachelor's Degree Difficulty w/ Childcare or Family Care: No Living arrangements: with family Additional living arrangements comments: AND CHILDREN Occupation/Education: occupation 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 Informed Consent: The patient's anesthetic plan and its attendant risks and benefits were discussed with the patient/family/POA. Questions were solicited and answers provided to the satisfaction of the patient/family/POA.
[2025-03-18] MEDS: ceFAZolin 2 GM in SODIUM CHLORIDE 0.9% IV 50 ML 100 ML IVPB (07:26)
--- NOTE | 2025-03-18 08:16 | S_PTH ---
PATIENT: Catie Bennett LOC: [facility] U#:[id number] AGE/SX: 39/F ROOM: RE03/18/[address]: Altaf Moreau MD : 1985 BED: DIS: 03/19/2025 SPEC #: [id number] RECD: 03/18/25 10:55 STATUS: TEJ REQ #: [id number] KALPANA: 03/18/25 08:[address]: Altaf Hayden DEPT: [facility] Surgical RECD BY: Yuliya Ibanez ENTERED: 03/18/25 10:56 SP TYPE: Surgical OTHR DR: MENTAL HEALTH NURSE PRACTITIONER PHYSICIAN Tissues: A - Uterus Procedures: Hematoxylin and Eosin Stain Gross and Microscopic Level 5
--- NOTE | 2025-03-18 08:45 | W.PM.PROC2 ---
Procedure Note - Detailed Date of Procedure 03/18/25 Pre-op Diagnosis endometriosis, pelvic pain, dysmenorrhea, enlarged labia Post-op Diagnosis Same Procedure Performed Robotic total vaginal hysterectomy right salpingectomy and labioplasty bilateral Surgeon Altaf Moreau MD Anesthesia General Indications This is a 39-year-old female with uterine prolapse pelvic pain status post LSO and enlarged labia Findings Enlarged labia bilaterally. Prolapse uterus was enlarged consistent with probable adenomyosis. Left ovary and tube were absent. Normal-appearing uterus otherwise. Normal-appearing right adnexa Description of Procedure Patient was prepped and draped in the normal sterile fashion placed in the dorsal lithotomy position. Under excellent general endotracheal anesthesia weighted speculum placed in posterior fornix vagina. Anterior lip of the cervix grasped with a single-tooth tenaculum. Uterus sounded to 9cm. Serial dilatation fragmented dilators performed followed by passage of the 8. MAILE and the 3. Cold cup. Next the 16 Iranian catheter placed in the bladder in the weighted speculum and single-tooth removed. The gloves were changed. Attention was turned to the abdomen. A supraumbilical incision made the Veress needle passed in the abdomen. Abdomen filled with CO2 gas [id number]. The 8mm trocar advanced in the abdomen. Downside visualized no injury seen. Patient placed in 18? Trendelenburg and right left lateral quadrant incision made. 8mm trocars advanced under direct visualization assuring no injury. A right upper quadrant incision made the 8mm trocar advanced under direct visualization assuring no injury. The robot was docked. Attention was turned to the deputy general counsel. The left round ligament grasped, burned, cut. Anteriorly bladder flap was formed by sharply dissecting the peritoneum and reflecting the bowel bladder caudally away from the cervix uterus the opposite round ligament was clamped, burned, cut. The left fallopian tube was then sharply dissected away from the ovarian complex a and left attached to its uterine origin. The left utero-ovarian ligament was skeletonized to maintain the the right ovary. This was clamped, burned, cut. The left round ligament was then grasped, burned, cut. Next the left cardinal broad ligaments were serially skeletonized clamping burning cutting until the large tortuous blood vessels on the left could be seen these were individually clamped, burned, cut. In similar fashion on the right the cardinal broad ligaments were skeletonized clamping burning cutting hugging the cervix uterus until the large uterine vessels could be seen on the right these were individually clamped, burned, cut blanching of the uterus was noted. A colpotomy incision was made in the cervix uterus and right tube removed through the vagina. The vagina then closed with continuous running 0V lock from lateral edge to lateral edge back to the midline. Irrigation undertaken until clear and the raw area sprinkled with [place] term. The robot was undocked. The gas removed from the abdomen. The incisions closed with 4-0 Monocryl and glue. Attention was turned to the labioplasty the right and left labia majora were somewhat enlarged and these were sharply dissected and incised without difficulty this was closed with running 3-0 Monocryl bilaterally. The patient was awakened went recovery in satisfactory condition. All sponge, needle, instrument counts were correct. There were no immediate complications Estimated Blood Loss 25 Drains No Packing No Pathology Yes Complications No immediate complications Condition Stable Disposition PACU
--- NOTE | 2025-03-18 08:50 | PM.DS ---
DS: Admitting Diagnosis Discharge Date 03/18/2025 Admitting Diagnosis Enlarged uterus/uterine prolapse/enlarged labia DS: Discharge Diagnosis Discharge Diagnosis (1) Enlarged uterus: Code(s): N85.2 - Hypertrophy of uterus Status: Acute (2) Labia enlarged: Code(s): N90.60 - Unspecified hypertrophy of vulva Status: Acute (3) Uterine prolapse: Code(s): N81.4 - Uterovaginal prolapse, unspecified Status: Acute DS: Summary Hospital Course Reason for hospitalization: Patient was admitted for robotic total vaginal hysterectomy and right salpingectomy with labioplasty bilaterally. This was performed on 03/18/2025 Hospital Course: Patient's hospital course unremarkable. She remained afebrile. She was up, voiding without difficulty, eating regular diet, ambulating, and generally without complaints. Time Spent with Patient Time attestation: Total time spent providing and/or coordinating discharge services: Exam Const: General: cooperative, healthy appearing and comfortable Nutritional Appearance: average body habitus Orientation/consciousness: oriented to person, oriented to place and oriented to time HENMT: Head: normal to inspection Resp: Effort & Inspection: normal respiratory effort Cardio: Rate: regular rate Rhythm: regular rhythm Heart sounds: S1 normal heart sound present and S2 normal heart sound present GI: Inspection: normal to inspection : External Female Exam: normal external appearance (Bilaterally enlarged labia) Speculum Exam - Vagina: normal appearance of the vagina Speculum Exam - Cervix: normal appearance of the cervix (Second-degree prolapse noted) Bimanual exam- vagina & uterus: enlarged and Uterine tenderness Bimanual Exam- Adnexa, other: normal adnexae DS: Data Data Completed and Pending Pending studies at discharge: Pending at discharge 03/18/25 08:16 Surgical [PTH] Routine Labs on day of discharge: Labs from last 24 hours 03/18/25 07:11 POC Urine HCG, Qual Negative Discharge Plan Discharge Patient Disposition: Home Patient Language: Irish Stand Alone Forms: General Discharge Instructions Follow-up/Referrals: Altaf Hayden MD [Physician, [employer] [facility] [employer]] Discharge Medications: New hydrocodone-acetaminophen 5-325 mg tablet 1 tablet PO Q4H PRN (Reason: pain) Qty: 30 0RF No Action sertraline 50 mg Tablet 50 mg PO DAILY dextroamphetamine-amphetamine 10 mg tablet 10 mg PO DAILY PRN (Reason: ADHD) trazodone 50 mg tablet 50 mg PO DAILY PRN (Reason: insomnia) alprazolam 0.25 mg tablet 0.25 mg PO DAILY PRN (Reason: anxiety) eszopiclone 2 mg tablet 2 mg PO DAILY PRN (Reason: insomnia)
[2025-03-18] MEDS: fentaNYL CITRATE INJ (*CRX) 100 MCG/2 ML VIAL 25 MCG IV PUSH ×4 (09:00→09:24)
--- NOTE | 2025-03-18 10:00 | PC.NURSE ---
This patient, Catie Bennett, was received from PACU on 03/18/25 at 1000. Patient/family oriented to unit policies and routines
[2025-03-18] MEDS: DOCUSATE SODIUM 100 MG CAPSULE PO ×2 (11:21→17:44)
[2025-03-18] MEDS: oxyCODONE HCL (*CRX) 5 MG TAB IR 10 MG PO ×2 (11:24→17:44)
[2025-03-18] MEDS: SIMETHICONE 80 MG TAB.CHEW PO ×2 (13:39→17:45)
[2025-03-18] MEDS: KETOROLAC 30 MG/ML VIAL (*BKC) IV PUSH ×2 (13:40→19:40)
[2025-03-19 00:54] VITALS: BP 103/58; PULSE 71; RESP 18; TEMP 37.1
[2025-03-19] MEDS: ACETAMINOPHEN 500 MG TABLET 1000 MG PO ×2 (01:10→07:32)
[2025-03-19] MEDS: KETOROLAC 30 MG/ML VIAL (*BKC) IV PUSH (01:10)
[2025-03-19 04:35] VITALS: BP 108/62; PULSE 71; RESP 18; TEMP 36.8; O2SAT 100
[2025-03-19] MEDS: oxyCODONE HCL (*CRX) 5 MG TAB IR 10 MG PO (04:36)
[2025-03-19 05:08] LABS: Hematocrit 35.9 % (37.0-47.0); Hemoglobin 11.6 g/dL (12.0-15.0); Immature Granulocyte Percent A 0.3 % (0-0.5); Lymphocytes Absolute Auto 2.12 K/mm3 (0.9-3.2); Mean Corpuscular HGB Conc 32.3 g/dl (32-36); Mean Corpuscular Hemoglobin 30.1 pg (26-34); Mean Corpuscular Volume 93.2 fl (80-100); Nucleated Red Blood Cells Absolute Auto 0.000 K/mm3 (0.0-0.012); Nucleated Red Blood Cells Perc 0.0 % (0.0-0.2); Platelet Count Result 229 k/mm3 (150-375); Red Blood Count 3.85 M/mm3 (4.2-5.4); White Blood Count 7.9 K/mm3 (4.5-10.0)
--- NOTE | 2025-03-19 07:01 | P.PNOB_ITS ---
SURGICAL DEVICE SALES REPRESENTATIVE - A/P Assessment and plan (1) Labia enlarged: Code(s): N90.60 - Unspecified hypertrophy of vulva Status: Acute (2) Enlarged uterus: Code(s): N85.2 - Hypertrophy of uterus Status: Acute (3) Uterine prolapse: Code(s): N81.4 - Uterovaginal prolapse, unspecified Status: Acute Plan home. Postoperative Procedures: Procedures Operation Date: 03/18/25 07:30 Actual Procedure Side Surgeon p Robotic Total Vaginal Hysterectomy with Right Salpingectomy, Right Altaf Moreau MD s Bilateral Labiaplasty Bilateral Altaf Moreau MD Time Spent With Patient Time: Total time spent is greater than 50% in coordination of care (as documented) at patient's floor/unit and/or counseling patient: Time with patient: less than 15 minutes SURGICAL DEVICE SALES REPRESENTATIVE- PN:Subj Post-Op Subjective Date/time seen: 03/19/25 07:01 Subjective: patient reports feeling better, patient has no complaints, patient desires discharge and pain is well controlled Review of Systems 2 Review of Systems: CONSTITUTIONAL: Denies body aches, fever, chills, or sweats. EYES: Denies visual changes, redness, or discharge. ENT: Denies rhinorrhea, congestion, sore throat, or otalgia. CARDIOVASCULAR: Denies chest pain, palpitations, or edema. RESPIRATORY: Denies cough or dyspnea. GASTROINTESTINAL: Denies abdominal pain, nausea, vomiting, or diarrhea. GENITOURINARY: Denies dysuria or hematuria.+ Urgency, frequency SKIN: Denies rash, itching, or wounds. MUSCULOSKELETAL: Denies back pain, joint pain, or myalgia. NEUROLOGIC: Denies headache, numbness, tingling, or weakness. PSYCH: Denies depression or anxiety. Exam 2 Const: General: cooperative, healthy appearing and comfortable Nutritional Appearance: average body habitus Orientation/consciousness: oriented to person, oriented to place and oriented to time HENMT: Head: normal to inspection Resp: Effort & Inspection: normal respiratory effort Cardio: Rate: regular rate Rhythm: regular rhythm Heart sounds: S1 normal heart sound present and S2 normal heart sound present GI: Inspection: normal to inspection SURGICAL DEVICE SALES REPRESENTATIVE - PN: Obj Data Vital Signs Vital Signs: Vital Signs - 24 hr 03/18/25 07:11 03/18/25 08:48 03/18/25 09:00 Temperature 99.0 F 98.0 F Pulse Rate 80 74 84 Respiratory Rate 16 15 18 Blood Pressure 106/73 120/82 121/83 Pulse Oximetry 100 100 100 Oxygen Delivery Room Air Simple Face Mask Simple Face Mask Oxygen Flow Rate 6 6 03/18/25 09:15 03/18/25 09:30 03/18/25 09:45 Temperature 97.3 F L Pulse Rate 89 84 83 Respiratory Rate 16 12 12 Blood Pressure 115/82 125/82 118/78 Pulse Oximetry 100 99 100 Oxygen Delivery Room Air Room Air Room Air Oxygen Flow Rate 03/18/25 10:00 03/18/25 14:00 03/18/25 19:40 Temperature 97.6 F 97.7 F 98.2 F Pulse Rate 79 80 70 Respiratory Rate 20 18 18 Blood Pressure 101/63 102/65 106/65 Pulse Oximetry 98 100 Oxygen Delivery Oxygen Flow Rate 03/18/25 19:40 03/19/25 00:54 03/19/25 00:54 Temperature 98.7 F Pulse Rate 71 Respiratory Rate 18 Blood Pressure 103/58 L Pulse Oximetry Oxygen Delivery Room Air Room Air Oxygen Flow Rate 03/19/25 04:35 Temperature 98.3 F Pulse Rate 71 Respiratory Rate 18 Blood Pressure 108/62 Pulse Oximetry 100 Oxygen Delivery Oxygen Flow Rate Intake/Output Intake/Output: Intake & Output 03/16/25 03/17/25 03/18/25 03/19/25 23:59 23:59 23:59 23:59 Intake Total 1330 Output Total 1380 Balance -50 Meds/Results Medications: Active Medications Generic Name Dose Route Start Last Admin Trade Name Celine PRN Reason Stop Dose Admin Acetaminophen 1,000 mg 03/18/25 12:00 03/19/25 01:10 Acetaminophen 500 Mg Tablet PO 1,000 mg Q6HR [facility] Administration Docusate Sodium 100 mg 03/18/25 09:52 03/18/25 17:44 Docusate Sodium 100 Mg Capsule PO 100 mg BID KAJAL Administration Enoxaparin Sodium 40 mg 03/18/25 09:52 03/18/25 17:43 Enoxaparin 40 Mg/0.4 Ml Syringe SUB-Q Not Given DAILY [facility] Ibuprofen 600 mg 03/19/25 06:00 Ibuprofen 600 Mg Tablet PO Q6HR [facility] Naloxone HCl 0.1 mg 03/18/25 09:52 Naloxone Hcl 0.4 Mg/Ml Vial IV PUSH Q2M PRN Respiratory rate less than 10 Ondansetron HCl 4 mg 03/18/25 09:52 Ondansetron Inj 4 Mg/2 Ml Vial IV PUSH Q6H PRN Nausea And Vomiting Oxycodone HCl 5 mg 03/18/25 09:52 Oxycodone Hcl (*Crx) 5 Mg Tab Ir PO Q4H PRN Pain Rated 4-6 Oxycodone HCl 10 mg 03/18/25 09:52 03/19/25 04:36 Oxycodone Hcl (*Crx) 5 Mg Tab Ir PO 10 mg Q6H PRN Administration Pain Rated 7-10 Simethicone 80 mg 03/18/25 12:00 03/18/25 17:45 Simethicone 80 Mg Tab.Chew PO 80 mg TIDWM KAJAL Administration Witch Leigh Ann 1 pad 03/18/25 18:50 Witch Leigh Ann 40 Pads TOPICAL PRN PRN Perineal Discomfort Labs 03/19/25 04:30 Labs: Laboratory Results - last 24 hr 03/18/25 03/19/25 07:11 04:30 WBC 7.9 RBC 3.85 L Hgb 11.6 L Hct 35.9 L MCV 93.2 MCH 30.1 MCHC 32.3 RDW 12.4 Plt Count 229 MPV 10.5 H Immature Gran % (Auto) 0.3 Neut % (Auto) 63.8 Lymph % (Auto) 27.0 Elbert % (Auto) 7.4 Eos % (Auto) 1.1 Baso % (Auto) 0.4 Lymph # (Auto) 2.12 Elbert # (Auto) 0.6 Eos # (Auto) 0.1 Baso # (Auto) 0.0 Abs Immat Gran (auto) 0.02 Absolute Neuts (auto) 5.0 Absolute Nucleated RBC 0.000 Nucleated RBC % 0.0 POC Urine HCG, Qual Negative
[2025-03-19] MEDS: SIMETHICONE 80 MG TAB.CHEW PO (07:32)
[2025-03-19] MEDS: IBUPROFEN 600 MG TABLET PO (07:32)
[2025-03-19] MEDS: DOCUSATE SODIUM 100 MG CAPSULE PO (07:32)
[2025-03-19] MEDS: ENOXAPARIN 40 MG/0.4 ML SYRINGE SUB-Q (07:33)
[2025-03-19 08:55] VITALS: BP 107/57; PULSE 63; RESP 16; TEMP 36.9; O2SAT 98
[2025-03-19] MEDS: oxyCODONE HCL (*CRX) 5 MG TAB IR PO ×2 (10:13→10:16)
== END 2025-03-19 10:50 | disposition home or self-care (01) ==
LOC: ANHSURGERY 06:27 → ANHOB2 10:09
PROVIDERS: Visit Provider Obstetrics & Gynecology
PROC: (CPT 56620; principal; 2025-03-18 07:30)
PROC: (CPT 56620; 2025-03-18 07:30)
DX: N81.4 Uterovaginal prolapse, unspecified (principal); N90.60 Unspecified hypertrophy of vulva; N72 Inflammatory disease of cervix uteri; N88.8 Other specified noninflammatory disorders of cervix uteri
CPT/HCPCS: 56620; 58552; S2900; 36415; 85025; 88307; 99199; J0690; A9270; J1100; J1171; J1200; J1650; J1885; J2003; J2004; J2250; J2405; J2704; J3010; J7030; J7120